=== PATIENT | male | born 1985 | race Caucasian/White ===

== ENCOUNTER 2017-01-07 23:58 | Emergency (ER) | payer OTHER ==
[~2017-01-07] VITALS: Ht 188 cm; Wt 145.6 kg
[~2017-01-07 23:58] MED LIST: HYDROCODON-ACE1 EAC7 PO; MOTRIN800 MG PO; ZOLOFT100 MG PO; no home
[2017-01-08 00:28] LABS: ADD MIUA? YES; BILIRUBIN NEGATIVE; BLOOD NEGATIVE; COLOR YELLOW ((YELLOW)); GLUCOSE (STRIP) NEGATIVE; KETONES NEGATIVE; LEUKOCYTES NEGATIVE; NITRITE NEGATIVE; PROTEIN (STRIP) NEGATIVE; SPECIFIC GRAVITY 1.027 (1.000-1.030)
[2017-01-08 00:33] LABS: MCH 29.3 PG (29.0-34.0); MCHC 33.8 G/DL (30.0-36.0); MCV 86.8 FL (86-99); PLATELET COUNT 209 K/uL (156-360); RBC DIS.WIDTH-CV 12.7 % (11.8-14.6); RBC DIS.WIDTH-SD 39.9 % (39-53); RED BLOOD COUNT 4.61 M/uL (4.00-5.50)
[2017-01-08 00:42] LABS: BACTERIA RARE /HPF; EPITHELIAL CELLS RARE /HPF; MUCUS TRACE /LPF; UCUL ADDED? NO; WHITE BLOOD CELLS 0-5 /HPF (0-5)
[2017-01-08 00:46] LABS: CHLORIDE 109 mEq/L (99-109); POTASSIUM 3.8 mEq/L (3.7-5.4); SODIUM 142 mEq/L (136-147)
[2017-01-08 00:49] LABS: GLUCOSE 113 mg/dL (70-99)
[2017-01-08 00:50] LABS: ANION GAP 12 MEQ/L (2-14); TOTAL BILIRUBIN 0.4 mg/dL (0.0-1.0)
[2017-01-08 00:52] LABS: ALKALINE PHOSPHATASE 93 IU/L (3-129); GFR ESTIMATE (CALCULATED) > 59 mL/min/
[2017-01-08 00:53] LABS: UREA NITROGEN (BUN) 12 mg/dL (9-23)
[2017-01-08] MEDS ORDERED: PERCOCET 5/31 TABLET PO (02:19)
[2017-01-08 03:08] VITALS: BP 132/90
== END 2017-01-08 03:09 | disposition home or self-care (01) ==
LOC: EME 23:58
DX: R10.31 Right lower quadrant pain (principal); K66.8 Other specified disorders of peritoneum; F17.200 Nicotine dependence, unspecified, uncomplicated
CPT/HCPCS: 74177; 80053; 81003; 85027; 99281; 99283; J7030

== ENCOUNTER 2017-09-26 08:44 | Emergency (ER) | payer OTHER ==
[~2017-09-26] VITALS: Ht 188 cm; Wt 147.6 kg
[~2017-09-26 08:44] MED LIST changes: +PERCOCET 5/31 TABLET PO
[2017-09-26 12:18] LABS: APPEARANCE SL.HAZY ((CLEAR)); BILIRUBIN NEGATIVE; BLOOD LARGE; COLOR YELLOW ((YELLOW)); GLUCOSE (STRIP) NEGATIVE; KETONES NEGATIVE; LEUKOCYTES NEGATIVE; NITRITE NEGATIVE; PROTEIN (STRIP) NEGATIVE; SPECIFIC GRAVITY 1.025 (1.000-1.030); UROBILINOGEN 0.2 MG/DL (0.2-1.0)
[2017-09-26 12:25] LABS: BACTERIA NONE SEEN /HPF; EPITHELIAL CELLS RARE /HPF; HYALINE CASTS 0-5 /LPF; MUCUS 1+ /LPF; RED BLOOD CELLS TNTC /HPF (0-5); WHITE BLOOD CELLS 0-5 /HPF (0-5)
[2017-09-26 12:48] LABS: HEMATOCRIT 40.8 % (38.0-50.0); MCH 29.9 PG (29.0-34.0); MCHC 34.3 G/DL (30.0-36.0); PLATELET COUNT 192 K/uL (156-360); RBC DIS.WIDTH-CV 12.7 % (11.8-14.6); RED BLOOD COUNT 4.69 M/uL (4.00-5.50); WHITE BLOOD COUNT 6.9 K/uL (4.1-10.2)
[2017-09-26 12:56] LABS: CHLORIDE 104 mEq/L (99-109); POTASSIUM 4.1 mEq/L (3.7-5.4); SODIUM 139 mEq/L (136-147)
[2017-09-26 12:57] LABS: GLUCOSE 83 mg/dL (70-99)
[2017-09-26] MEDS ORDERED: FLOMAX0.4 MG PO (12:57)
[2017-09-26] MEDS ORDERED: NAPROSYN500 MG PO (12:57)
[2017-09-26] MEDS ORDERED: NORCO 5/3251 TABLET PO (12:57)
[2017-09-26] MEDS ORDERED: ZOFRAN ODT4 MG PO (12:57)
[2017-09-26 13:01] LABS: CREATININE 0.9 mg/dL (0.6-1.3); GFR ESTIMATE (CALCULATED) > 59 mL/min/ (58.99-99999)
[2017-09-26 13:02] LABS: UREA NITROGEN (BUN) 16 mg/dL (9-23)
[2017-09-26 13:21] VITALS: BP 155/100
== END 2017-09-26 13:24 | disposition home or self-care (01) ==
LOC: EME 08:44
PROVIDERS: Nurse Practitioner Family
DX: N13.2 Hydronephrosis with renal and ureteral calculous obstruction (principal); Z87.891 Personal history of nicotine dependence
CPT/HCPCS: 74176; 80048; 81003; 85027; 99281; 99284